=== PATIENT | male | born 1950 | race Caucasian/White ===

== ENCOUNTER → 2019-06-25 10:43 | Outpatient (CLI) | payer MEDICARE, OTHER, SELFPAY ==
--- NOTE | ~2019-06-25 | MR_ITS ---
EXAMINATION: MR shoulder RT wo con DATE: 06/25/2019 11:33 INDICATION: Impingement syndrome of right shoulder. TECHNIQUE: Magnetic resonance imaging (MRI) of the right shoulder was performed without intravenous c ontrast. Sequences included axial PD-weighted FS FSE, coronal oblique PD-weighted FS FSE and T2-weigh paola FS FSE, and sagittal oblique T2-weighted FS FSE and T1-weighted FSE. COMPARISON: Right shoulder MRI 06/20/2017 FINDINGS: Coracoacromial arch: The acromion undersurface is curved in morphology (type II). There are likely changes of acromioplast y and distal clavicle resection. There is moderate subacromial/subdeltoid bursitis. Rotator cuff: There is severe supraspinatus and infraspinatus tendinopathy. There is an interstitial tear involving supraspinatus and infraspinous tendons measuring 6 mm anterior to posterior by 7 mm proximal to dist al by 20% tendon thickness. Teres minor tendon is normal. There is moderate subscapularis tendinopath y. There is no asymmetric fatty atrophy of the rotator cuff muscle bellies. Biceps tendon and glenoid labrum: Biceps tendon is in bicipital groove. There is moderate intra-articular biceps tendinopathy. There is degeneration of the glenoid labrum without well-defined tear. Fluid: There is no glenohumeral joint effusion. Bones/cartilage: There is cartilage surface irregularity of glenoid. Humeral head cartilage is normal. IMPRESSION: 1. Severe rotator cuff tendinopathy with interstitial tear involving supraspinatus and infraspinatus tendons. 2. Mild glenoid chondrosis. 3. Moderate intra-articular biceps tendinopathy. 4. Moderate subacromial/subdeltoid bursitis. Reviewed, dictated and finalized at location A. ER TENDERS SUPERVISOR IMPRESSION: 1. Severe rotator cuff tendinopathy with interstitial tear involving supraspina tus and infraspinatus tendons. 2. Mild glenoid chondrosis. 3. Moderate intra-articular biceps tendinopathy. 4. Moderate subacromial/subdeltoid bursitis.
== END ==
DX: M75.41 Impingement syndrome of right shoulder (principal); M75.101 Unspecified rotator cuff tear or rupture of right shoulder, not specified as traumatic; M75.51 Bursitis of right shoulder
CPT/HCPCS: 73221

== ENCOUNTER → 2021-12-02 10:40 | Outpatient (CLI) | payer MEDICARE, OTHER, SELFPAY ==
--- NOTE | ~2021-12-02 | CT_ITS ---
EXAMINATION: CT abdomen pelvis wo/w con DATE: 12/02/2021 11:26 INDICATION: Renal cysts TECHNIQUE: Computed tomography (CT) of the abdomen was performed without intravenous contrast. CT of the abdomen and pelvis was then performed with a total of 100 mL Omnipaque 300 intravenous contrast u sing a double-bolus technique for simultaneous opacification of the renal parenchyma and renal collec ting system. The dose-length product (DLP) was 1992.82 mGy-cm. Automated exposure control and iterati ve reconstruction technique were employed. COMPARISON: None FINDINGS: Minimal dependent atelectasis is present in the lung bases. The heart size is normal. There is a 3 mm nodule of the right middle lobe. There is a small sliding hiatal hernia. The liver, spleen , pancreas, gallbladder, and adrenal glands are normal. There is a 5.2 x 3.6 cm cystic lesion of the right kidney which demonstrates internal septations, measuring up to 3 mm in thickness and thin calci fications and some septations. Simple cysts in the lower pole of the right kidney measure up to 3.6 c m. There is a 5 mm hemorrhagic cyst of the left kidney. No pathologically enlarged abdominal or pelvi c lymph nodes are identified. There is no free intraperitoneal gas or evidence of bowel obstruction. Colonic diverticulosis is present without evidence of diverticulitis. There are umbilical hernias con taining fat. Prostatomegaly is noted. There is questionable wall thickening of the urinary bladder. T here are a few nondistended loops of small bowel with formed stool, likely reflecting slow transit. IMPRESSION: 1. Bosniak IIF lesion of the right kidney. Follow-up CT or MRI without and with contrast in six month s is recommended. 2. Possible wall thickening of the urinary bladder which could reflect cystitis versus chronic outlet obstruction. Reviewed, dictated and finalized at location B. IMPRESSION: 1. Bosniak IIF lesion of the right kidney. Follow-up CT or MRI without and with contrast in six months is recommended. 2. Possible wall thickening of the urinary bladder which could reflect cystitis versus chronic outlet obstruction.
[2021-12-02 11:11] LABS: Estimated Glomerular Filt Rate > 60
== END ==
PROVIDERS: PCP Family Medicine; Visit Provider Internal Medicine Gastroenterology
DX: R63.4 Abnormal weight loss (principal); R10.9 Unspecified abdominal pain
CPT/HCPCS: 74178; Q9967

== ENCOUNTER → 2022-05-17 10:40 | Outpatient (CLI) | payer MEDICARE, OTHER, SELFPAY ==
--- NOTE | ~2022-05-17 | CT_ITS ---
CT of the Abdomen and Pelvis: Indication: Renal cyst Technique: 2.5 mm axial scans were obtained through the abdomen and pelvis prior to and following in travenous administration of 100 cc of Omnipaque 350. Dose reduction technique was used on this scan b y utilizing automated exposure control and iterative reconstruction technique. The dose-length produc t (DLP) was 1838.71 mGy-cm. COMPARISON: 12/02/2021 Findings: Scans through the lung bases are unremarkable. The liver, spleen, pancreas, gallbladder, and adrenal glands are within normal limits. Benign, nonenh ancing bilateral renal cysts are stable from prior exam. Largest right-sided cyst contains thin inter nal septation and focal calcification. No evidence of aortic aneurysm. No lymphadenopathy. No bowel obstruction or bowel wall thickening. Sigmoid diverticulosis noted. Images through the pelvis were performed. Urinary bladder unremarkable. Prostate gland is enlarged. P robable bilateral hydroceles are partially imaged. Impression: Benign renal cystic lesions, as detailed above, stable from prior exam. Enlarged prostate gland. Reviewed, dictated and finalized at location M. PROGRAM DIRECTOR Impression: Benign renal cystic lesions, as detailed above, stable from prior exam. Enlarged prostate gland.
[2022-05-17 11:01] LABS: Estimated Glomerular Filt Rate > 60
== END ==
PROVIDERS: PCP Family Medicine; Visit Provider Urology
DX: N28.1 Cyst of kidney, acquired (principal)
CPT/HCPCS: 74178; Q9967

== ENCOUNTER → 2023-04-16 10:20 | Outpatient (CLI) | payer MEDICARE, OTHER, SELFPAY ==
--- NOTE | ~2023-04-16 | CT_ITS ---
EXAMINATION: CT abdomen pelvis w con DATE: 04/16/2023 11:05 INDICATION: Abnormal weight loss TECHNIQUE: Computed tomography (CT) of the abdomen and pelvis was performed with 100 mL Omnipaque-350 intravenous contrast. Automated exposure control and iterative reconstruction technique were employe d. The dose-length product was 1135.62 mGy-cm. COMPARISON: 05/17/2022 FINDINGS: Calcified right middle lobe nodule, calcified right hilar lymph nodes and a few splenic calcification s, all consistent with old granulomatous disease. Heart size is normal. Small amount of scattered ath erosclerotic coronary artery calcification. No pericardial or pleural effusion. Liver, gallbladder, p ancreas and bilateral adrenal glands are normal. Bilateral simple appearing fluid attenuation renal c ysts, the largest on the right measuring 4.1 cm. Small amount of calcification along a couple thin in ternal septations associated with a larger 5.0 cm Bosniak 2 cystic right renal lesion. Also unchanged is a 1.3 cm coarse calcification and peripheral to the previously noted Bosniak 2 cystic right renal lesion There is extensive colonic diverticulosis without adjacent inflammatory stranding to suggest diverticulitis. Small bowel and appendix are normal. Bladder is normal. Prostatomegaly. Again seen ar e bilateral hydroceles, small to moderate on the right and large but incompletely visualized on the l eft. No free intraperitoneal gas or fluid. No pathologically enlarged abdominal or pelvic lymphadenop athy. There is calcified atherosclerosis of the aorta and many of the other arteries. 2 mm anterolist hesis L4 on L5 with severe associated bilateral facet osteoarthritis. Otherwise mild to moderate dege nerative skeletal changes in the pelvis and visualized spine. IMPRESSION: 1. Prostatomegaly. 2. Diverticulosis. 3. Bilateral hydroceles, small to moderate-sized on the right and large but incompletely visualized o n the left. 4. No significant change in a 5.0 cm Bosniak 2 right renal cyst along with a few additional bilateral simple appearing Bosniak 1 cysts. Reviewed, dictated and finalized at location A. COOK IMPRESSION: 1. Prostatomegaly. 2. Diverticulosis. 3. Bilateral hydroceles, small to moderate-sized on the right and large but inc ompletely visualized on the left. 4. No significant change in a 5.0 cm Bosniak 2 right renal cyst along with a fe w additional bilateral simple appearing Bosniak 1 cysts.
[2023-04-16 10:54] LABS: Estimated Glomerular Filt Rate > 60
== END ==
PROVIDERS: PCP Internal Medicine Gastroenterology; Visit Provider Internal Medicine Gastroenterology
DX: R63.4 Abnormal weight loss (principal); N40.0 Benign prostatic hyperplasia without lower urinary tract symptoms; K57.30 Diverticulosis of large intestine without perforation or abscess without bleeding; N43.3 Hydrocele, unspecified
CPT/HCPCS: 74177; Q9967

== ENCOUNTER 2024-09-29 14:05 | Emergency (ER) | payer MEDICARE, SELFPAY ==
--- NOTE | ~2024-09-29 | XR_ITS ---
EXAMINATION: XR hand RT min 3V DATE: 09/29/2024 14:39 INDICATION: Right hand pain TECHNIQUE: Posteroanterior, oblique and lateral views of the right hand were obtained. COMPARISON: None. FINDINGS: Bone alignment is normal. No fracture. Polyarticular osteoarthritis, moderate severity at the first c arpal metacarpal and second and fifth distal interphalangeal joints and mild at the distal radioulnar , triscaphe and many of the remaining metacarpophalangeal and interphalangeal joints. No erosions to suggest inflammatory arthritis. Soft tissues are unremarkable. IMPRESSION: 1. 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 No acute osseous abnorm ality. Reviewed, dictated and finalized at location A. IMPRESSION: 1. 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 N o acute osseous abnormality.
[2024-09-29 14:10] VITALS: BP 130/77; PULSE 80; RESP 16; TEMP 37; O2SAT 99
--- NOTE | 2024-09-29 16:54 | ED.UPPEXIN ---
HPI - Extremity Injury (Upper) General Chief Complaint: Extremity Injury, Upper Stated Complaint: Injured Hand Time Seen by Provider: 09/29/24 15:05 Source: patient and RN notes reviewed Mode of arrival: ambulatory Limitations: no limitations History of Present Illness HPI narrative: 73-year-old male presents Express Care complaining of right hand pain for 9 days. Denies no apparent injury to his right hand. Nine days ago patient was picking up sticks in the yard when he developed pain in his right hand. Patient reports most of his pain is behind the knuckle in his index finger. Patient says is also some pain to the dorsal surface of his hand. She denies any numbness or tingling. Patient denies any swelling or deformity. Patient has taken Tylenol for pain with mild relief. Patient says he avoids Motrin because he has IBS. Related Data Home Medications ?Medication ?Instructions ?Recorded ?Confirmed ?Last Taken ?Type cholecalciferol (vitamin D3) 50 50 mcg PO DAILY 11/19/19 09/29/24 Unknown History mcg (2,000 unit) capsule losartan 50 mg tablet 50 mg PO DAILY 11/19/19 09/29/24 Unknown History multivitamin,ce-rdrn-pqrkuzmj 1 tablet PO DAILY 11/19/19 09/29/24 Unknown History (Complete Multivitamin tablet) amlodipine 5 mg tablet 5 mg PO DAILY 12/09/20 09/29/24 Unknown History aspirin 81 mg tablet,delayed 81 mg PO DAILY 03/29/22 09/29/24 Unknown History release (Adult Aspirin Regimen) linaclotide 290 mcg capsule 290 mcg PO DAILY 03/28/23 09/29/24 Unknown History (Linzess) metoprolol tartrate 50 mg tablet 50 mg PO DAILY 03/28/23 09/29/24 Unknown History pantoprazole 40 mg tablet,delayed 40 mg PO DAILY 03/28/23 09/29/24 Unknown History release zolpidem 10 mg tablet 10 mg PO QHS 03/28/23 09/29/24 Unknown History azelastine 0.05 % eye drops 1 drp EACH EYE BID 04/02/24 09/29/24 Unknown History nortriptyline 10 mg capsule 10 mg PO QHS 04/02/24 09/29/24 Unknown History rosuvastatin 5 mg tablet 5 mg PO DAILY 09/29/24 09/29/24 Unknown History Allergies Allergy/AdvReac Type Severity Reaction Status Date / Time No Known Drug Allergies Allergy Unknown NONE Verified 09/29/24 14:12 Review of Systems Review of Systems: CONSTITUTIONAL: Denies fever, chills, or sweats. EYES: Denies visual changes, redness, or discharge. ENT: Denies rhinorrhea, congestion, sore throat, or otalgia. CARDIOVASCULAR: Denies chest pain, palpitations, or edema. RESPIRATORY: Denies cough or dyspnea. GASTROINTESTINAL: Denies abdominal pain, nausea, vomiting, or diarrhea. GENITOURINARY: Denies dysuria or hematuria. SKIN: Denies rash or itching. MUSCULOSKELETAL: Denies back pain, joint pain, or myalgia. Right hand pain. NEUROLOGIC: Denies headache, numbness, or weakness. PSYCHIATRIC: Denies anxiety or depression. All other systems reviewed are negative, except as documented in HPI. [facility] Past Medical History Medical History Anxiety Intermittent asthma NOLVIA (obstructive sleep apnea) Family History Family History Mother Family history of arthritis Father Family history of lung cancer, Onset Age: 68 Sibling Family history of sleep apnea Social History Social History Smoking packs per day: 1 Smoking cigarettes per day: 20.0 Years smoked: 44 Smoking pack-years: 44.00 Smoking status: Former smoker Second hand tobacco smoke exposure: Yes Smoking end date: 05/28/75 Alcohol intake: former Comments At the time of my signature, I reviewed and agree with the nursing past medical, surgical, social, and family history. There is no relevant family history pertinent to the patient complaint. Exam Narrative: GENERAL: This is a well-nourished, well-developed adult, in no apparent distress. They are non ill-appearing, nontoxic appearing. HEAD: normocephalic, atraumatic. EYES: Sclera clear/white. Conjunctiva normal. Vision is grossly intact. Extraocular movements intact EARS: External ears normal, Hearing grossly intact. NOSE: External nose normal THROAT: Mucous membranes moist, NECK: Normal range of motion CARDIOVASCULAR: Regular rate and rhythm RESPIRATORY: Respiratory rate normal, respiratory effort nonlabored, no respiratory distress SKIN: warm, Dry, intact with no suspicious lesions or rash, good texture and turgor. NEURO: awake, alert, and oriented to person, place and time. There were no obvious focal neurologic abnormalities. EXTREMITIES: Right hand: No obvious deformity, swelling, bruising, injury, redness. Patient is able to make a fist, stop sign, okay sign, thumbs up. Radial pulse 2 +and palpable. Normal range of motion of wrist and hand. Patient is able to pronate and supinate. Right index finger without swelling, deformity, bruising, injury. Patient able to move the index finger against resistance at the DIP, PIP and MCP. Bony tenderness to the MCP of the index finger. neurovascular status intact distal injury. Capillary refill less than 2 seconds, normal sensation. BACK: Nontender without deformity. No CVA tenderness. Course Course Emergency Course: Portions of this record may have been created with voice recognition software Level of Care: Express Care Visit Vital Signs Vital signs: Vital Signs Temperature 98.6 F 09/29/24 14:10 Pulse Rate 80 09/29/24 14:10 Respiratory Rate 16 09/29/24 14:10 Blood Pressure 130/77 09/29/24 14:10 Pulse Oximetry 99 09/29/24 14:10 Oxygen Delivery Room Air 09/29/24 14:10 Temperature 98.6 F 09/29/24 14:10 Pulse Rate 80 09/29/24 14:10 Respiratory Rate 16 09/29/24 14:10 Blood Pressure 130/77 09/29/24 14:10 Pulse Oximetry 99 09/29/24 14:10 Oxygen Delivery Room Air 09/29/24 14:10 Reviewed MDM - Extremity Injury (Upper) [facility] Narrative Medical decision making narrative: X-ray negative for any acute fracture or acute findings. Did show osteoarthritis the patient's right hand. Will prescribe diclofenac topical cream for pain. Discussed physical exam findings. Advised supportive measures and signs/symptoms to go to the ER. Pt is appropriate for outpt treatment and f/u. Differential Diagnosis Differential diagnosis: Likely other (Hand fracture, finger fracture, arthritis) Imaging Data Radiologist's impression: ITS Impressions Hand X-Ray 09/29/24 14:40 IMPRESSION: 1. 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 No acute osseous abnormality. Critical Care Time Critical Care Time Critical Care Time: No Discharge Plan Discharge Clinical Impression: Arthritis of hand, right Patient Disposition: Home Condition: Stable Instructions: Arthritis (ED) Additional Instructions: Your x-ray was negative for any fractures. X-ray did show arthritis of the right hand. You may wear a wrist splint or Daniel wrap for comfort. Apply ice 15-20 minute intervals several times a day You may use Tylenol as needed for pain. Use the diclofenac gel to the affected area. Follow up with your primary care provider as needed in 1-2 weeks Please follow-up with the hand specialist orthopedist if pain persists. Patient Language: Cuban Prescriptions: New diclofenac sodium 1 % gel 4 g topical QID 5 Days Qty: 100 0RF Rx Instructions: Apply to the affected area up to 4 times daily. No Action rosuvastatin 5 mg tablet 5 mg PO DAILY losartan 50 mg tablet 50 mg PO DAILY cholecalciferol (vitamin D3) 50 mcg (2,000 unit) capsule 50 mcg PO DAILY Complete Multivitamin Tablet 1 tablet PO DAILY amlodipine 5 mg tablet 5 mg PO DAILY aspirin [Adult Aspirin Regimen] 81 mg tablet,delayed release (DR/EC) 81 mg PO DAILY zolpidem 10 mg tablet 10 mg PO QHS pantoprazole 40 mg tablet,delayed release (DR/EC) 40 mg PO DAILY metoprolol tartrate 50 mg tablet 50 mg PO DAILY Linzess 290 mcg capsule 290 mcg PO DAILY azelastine 0.05 % drops 1 drp EACH EYE BID nortriptyline 10 mg capsule 10 mg PO QHS Follow-up/Referrals: Baljit Fonseca MD [Physician] - Kristian Short MD [Physician] - PHYSICIAN,SWIMMER [Primary Care Provider] - Time of Disposition: 15:12
== END 2024-09-29 15:16 | disposition home or self-care (01) ==
DX: M19.041 Primary osteoarthritis, right hand (principal); Z87.891 Personal history of nicotine dependence; J45.909 Unspecified asthma, uncomplicated; Z79.82 Long term (current) use of aspirin
CPT/HCPCS: 73130; 99213; G0463

== ENCOUNTER → 2024-10-21 16:05 | Outpatient (REF) | payer MEDICARE, SELFPAY ==
--- NOTE | 2024-10-21 16:05 | S_PTH ---
PATIENT: Kevin Metzger Jr. LOC: [facility] U#:[id number] AGE/SX: 74/M ROOM: RE10/21/[address]: Gokul Hamilton MD : [id number] BED: DIS: SPEC #: [id number] RECD: 10/23/24 07:16 STATUS: ADEEL MENDOZA #: [id number] CAM: 10/21/24 16:[address]: Gokul Hamilton DEPT: [facility] Surgical RECD BY: Dena Villavicencio ENTERED: 10/23/24 07:16 SP TYPE: Surgical OTHR DR: SURGERY ASSISTANT PHYSICIAN Tissues: A - Skin Bx Procedures: Hematoxylin and Eosin Stain Gross and Microscopic Level 4
--- OUTSIDE RECORDS SUMMARY | 2024-10-21 16:22 | XMS_ITS | Encounter Summary ---
Author Organization [facility] Facility Care Team Providers Care Camp Manager Name Role Phone Damian Sparrow DO Primary Care Provider + Gerhard Hampton MD Unavailable [phone] Encounter Details Date Type Department Care Team (Latest Contact Info) Description 10/03/2016 Orders Only [facility] CLINCONV ProviderStew MD [address] [place] [id number] Social History Tobacco Use Types Packs/Day Years Used Date Smoking Tobacco: Never Assessed Sex and Gender Information Value Date Recorded Sex Assigned at Not on file Legal Sex Male 8:24 AM CDT Gender Identity Male 01/12/2020 10:37 AM CDT Sexual Orientation Not on file documented as of this encounter Plan of Treatment Not on file documented as of this encounter Procedures Procedure Name Priority Date/Time Associated Diagnosis Comments COLONOSCOPY - SCAN 10/03/2016 12 :00 AM CDT documented in this encounter Results * COLONOSCOPY - SCAN (10/03/2016 12:00 AM CDT) Narrative 10/03/2016 12:00 AM CDT Ordered by an unspecified provider. Historical Provider Final Res ult documented in this encounter Visit Diagnoses Not on filedocumented in this encounter Care Teams Camp Manager Relationship Specialty Start Date End Date Damian Sparrow DO PCP - General 08/12/18 Gerhard Hampton MD [address] [place] [address] Grommet Machine Operator Cardiology 05/09/19 documented as of this encounter
--- OUTSIDE RECORDS SUMMARY | 2024-10-21 16:22 | XMS_ITS | Clinical Summary ---
Author Organization [facility] Address [address] [place] [address] Care Team Providers Care Commercial Intelligence Manager Name Role Phone Unavailable Primary Care Provider Unavailabl e Source Comments [facility],non-owned Affiliates and Associated Physician Practices is amultiple site organization consisting of ambulatory clinics and hospital sitesin [place], [place] and [place]. This disclosure is being madepursuant to the Care Everywhere program and may not contain all information available regarding this patient. Last updated 18.[facility] [employer] Social History Tobacco Use Types Packs/Day Years Used Date Smoking Tobacco: Never Assessed Sex and Gender Information Value Date Recorded Sex Assigned at Not on file Legal Sex Male 11:36 AM PIN INSERTER Gender Identity Not on file Sexual Orientation Not on file Plan of Treatment Health Maintenance Due Date Last Done Comments HEPATITIS C SCREENING 10/01/1966 DTAP/TDAP/TD VACCINES (1 - Tdap) 10/06/1967 PNEUMOCOCCAL VACCINE 50+ (1 of 1 - PCV) 1998 ZOSTER VACCINE (1 of 2) 1998 Respiratory Syncytial Virus (RSV) Vaccine Pt: or over 60 yrs (1 - 1-dose 75+ series) 10/06/2023 COVID-19 VACCINE ( - 2023-2 5 season) 2024 DEPRESSION SCREENING 05/28/2024 MEDICARE AWV CALENDAR YEAR 2024 INFLUENZA VACCINE (Season Ended) 2025 HEPATITIS B VACCINE Aged Out No longe r eligible based on patient's age to complete this topic HIB VACCINE Aged Out No longer eligi ble based on patient's age to complete this topic HPV VACCINE Aged Out No longer eligi ble based on patient's age to complete this topic MENINGOCOCCAL (Group B) VACC INE SHARED DECISION-MAKING Aged Out No longer eligibl e based on patient's age to complete this topic MENINGOCOCCAL GROUPS A/C/Y/W VACCINE Aged Out No longer eligible b ased on patient's age to complete this topic Insurance MEDICARE [facility] MANAGED MEDICARE ADV MEDICARE [facility]
--- OUTSIDE RECORDS SUMMARY | 2024-10-21 16:22 | XMS_ITS | Encounter Summary ---
Author Organization [facility] Facility Care Team Providers Care Tube Bender Name Role Phone Damian Sparrow DO Primary Care Provider + Gerhard Hampton MD Unavailable [phone] Encounter Details Date Type Department Care Team (Latest Contact Info) Description 03/12/2016 Orders Only [facility] CLINCONV ProviderStew MD [address] [place] [id number] Social History Tobacco Use Types Packs/Day [...] Procedure Name Priority Date/Time Associated Diagnosis Comments CARDIOLOGY REPORT 03/14/2016 12: 00 AM CDT documented in this encounter Results * CARDIOLOGY REPORT (03/14/2016 12:00 AM CDT) Anatomical Region Laterality Modality Other Narrative 03/14/2016 12:00 AM CDT Ordered by an unspecified provider. Historical Provider [facility] Final Result documented in this encounter Visit Diagnoses Not on filedocumented in this encounter Care Teams Tube Bender Relationship Specialty Start Date End Date [place], Damian Solomon, DO PCP - General 08/12/18 Gerhard Hampton MD [address] [place] [address] Program Coordinator Executive Education Cardiology 05/09/19 documented as of this encounter
--- OUTSIDE RECORDS SUMMARY | 2024-10-21 16:22 | XMS_ITS | Encounter Summary ---
Author Organization [facility] Facility Care Team Providers Care Sports Recruiter Name Role Phone Damian Sparrow DO Primary Care Provider + Gerhard Hampton MD Unavailable [phone] Encounter Details Date Type Department Care Team (Latest Contact Info) Description 12/31/2017 Orders Only [facility] CLINCONV Provider, MD Stew [address] [place] [id number] Social History Tobacco Use Types Packs/Day [...] Procedure Name Priority Date/Time Associated Diagnosis Comments SCAN - LABS 01/04/2018 12:00 AM CDT documented in this encounter Results * SCAN - LABS (01/04/2018 12:00 AM CDT) Narrative 01/04/2018 12:00 AM CDT Ordered by an unspecified provider. Historical Provider Final Res ult documented in this encounter Visit Diagnoses Not on filedocumented in this encounter Care Teams Sports Recruiter Relationship Specialty Start Date End Date Damian Sparrow DO PCP - General 08/12/18 Gerhard Hampton MD [address] [address] Generating Station Mechanic Cardiology 05/09/19 documented as of this encounter
--- OUTSIDE RECORDS SUMMARY | 2024-10-21 16:22 | XMS_ITS | Clinical Summary ---
Author Organization [facility] Office [place] Address [address] [place] [address] Care Team Providers Care Personnel Worker Name Role Phone Damian Sparrow DO Primary Care Provider + Gerhard Hampton MD Unavailable [phone] Allergies No known active allergies Medications cholecalcifero l (VITAMIN D-3) 2000 unit tablet Take 1 tablet (2,000 Units total) by mouth daily Active multivitamin tablet Take by mouth daily Active aspirin 81 mg enteric coated tablet Take 1 tablet (81 mg total) by mouth daily Active tobramycin-dex AMETHasone (TOBRADEX) ophthalmic solution 1 drop as needed Active albuterol HFA (Proventil HFA) 90 mcg/actuation inhaler Inhale 2 puffs every 4 (four) hours as needed for wheezing or shortness of breath 6.7 g 5 1 Active fluticasone propionate (FLOVENT HFA) 110 mcg/actuation inhaler Inhale 1 puff daily Rinse mouth with water after use. Do not swallow. Please give the rx with a spacer 1 each 2 Active azelastine (OPTIVAR) 0.05 % ophthalmic solution 1 drop 2 (two) times a day [address] (PROTONIX) 40 mg EC tablet Take 1 tablet (40 mg total) by mouth daily Active Linzess 290 mcg capsule Take 1 capsule (290 mcg total) by mouth daily 3 Active nortriptyline (PAMELOR) 10 mg capsule Take 1 capsule (10 mg total) by mouth nightly Active amLODIPine (NORVASC) 5 mg tablet Take 1 tablet (5 mg total) by mouth daily 90 tablet 4 Active losartan (COZAAR) 50 mg tablet Take 1 tablet (50 mg total) by mouth daily 90 tablet 4 Active metoprolol tartrate (LOPRESSOR) 50 mg immediate release tablet Take 1 tablet (50 mg total) by mouth daily 90 tablet 4 Active zolpidem (AMBIEN) 10 mg tablet Take 0.5 tablets (5 mg total) by mouth nightly as needed for sleep 30 tablet 4 Active ezetimibe (ZETIA) 10 mg tablet TAKE 1 TABLET BY MOUTH DAILY 90 tablet 4 Active Additional Information Patient taking differently: 10 mg oral Daily, Indications: hyperlipidemia, Informant: Self, Reported on 07/25/2023 dutasteride (AVODART) 0.5 mg capsule Take 1 capsule (0.5 mg total) by mouth daily 3 Active oxyCODONE (ROXICODONE) 5 mg immediate release tabletIndicati ons:Pain Take 1 tablet (5 mg total) by mouth every 4 (four) hours as needed for pain 30 tablet 4 Active lactulose 0.67 gram/mL solution TAKE 15 ML BY MOUTH EVERY DAY FOR 90 DAYS 3 08/04/19 23 Discontin ued(Dupli sachin order) Active Problems Problem Noted Date Diagnosed Date Closed displaced fracture of fifth metacarpal bone of right hand 07/24/2023 Dislocation of carpometacarpal joint of right young nd 07/24/2023 Generalized abdominal pain 04/10/2023 Assessment & Plan (04/10/2023 4:21 PM HELICOPTER PILOT INSTRUCTOR): Seeing Dr. Sadie Davila discussion with the pt Right bundle branch block 04/02/2023 Primary central sleep apnea 10/02/2022 Assessment & Plan (10/02/2022 2:17 PM CDT): Patient has longstanding history of sleep apnea using BiPAP and got use for last 15 years doing well encouraged to use it regularly Slow transit constipation 07/18/2022 Assessment & Plan (08/03/2022 10:43 AM HELICOPTER PILOT INSTRUCTOR): Chronic constipation, worsening since September of 2021. Patient has been following with Dr. Hwang and is here for a 2nd opinion. He is tried and failed Metamucil and MiraLax. He was started on Linzess 290 mcg p.o. daily, however switch to Linzess 72 mcg p.o. daily. Due to financial reasons he stopped this medication was put on lactulose which seems to work for most days. He was also tried on empiric Flagyl with no improvement. Colonoscopy by Dr. Noel May 2021 with diverticulosis and hemorrhoids otherwise unremarkable. -recommend increasing lactulose to 30 mL daily for 6 weeks, then decrease to 15 mL daily -okay to use Linzess 72 mcg p.o. daily as needed (patient states he has some leftover medication) -high-fiber diet Assessment & Plan (07/18/2022 2:09 PM HELICOPTER PILOT INSTRUCTOR): Refer to Dr. Valderrama Has also used Linzess Encounter for Medicare annual wellness exam 02/27 Assessment & Plan (03/27/2022 10:50 AM CDT): Chart reviewed VALERIE (generalized anxiety disorder) 03/27/2022 Assessment & Plan (04/10/2023 4:20 PM HELICOPTER PILOT INSTRUCTOR): Patient is well controlled. Continue current treatment. Assessment & Plan (03/27/2022 10:51 AM CDT): Patient is well controlled. Continue current treatment. Mild episode of recurrent major depressive disor maria dolores 03/27/2022 Assessment & Plan (04/10/2023 4:07 PM HELICOPTER PILOT INSTRUCTOR): Patient is well controlled. Continue current treatment. Assessment & Plan (07/18/2022 2:08 PM HELICOPTER PILOT INSTRUCTOR): Patient is well controlled. Continue current treatment. Assessment & Plan (03/27/2022 10:51 AM CDT): No new orders Rectal pain 03/27/2022 Assessment & Plan (03/27/2022 10:58 AM CDT): Had a colonoscopy Worsening issue Add align Hiatal hernia 08/09/2020 Assessment & Plan (08/09/2020 2:05 PM CDT): Refer to Dr. 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 Magaña who checks PSA Diverticulosis 01/13/2019 Assessment & Plan (01/13/2019 2:29 PM CDT): Stable Elevated blood sugar 01/13/2019 Assessment & Plan (03/27/2022 11:06 AM CDT): Check a a1c Assessment & Plan (11/10/2020 2:03 PM CDT): Check a a1c Patient is well controlled. Continue current treatment. Assessment & Plan (07/25/2019 12:48 PM HELICOPTER PILOT INSTRUCTOR): a1c GERD (gastroesophageal reflux disease) 9 Assessment & Plan (04/10/2023 4:07 PM HELICOPTER PILOT INSTRUCTOR): Seeing Dr. Noel Assessment & Plan (08/03/2022 10:36 AM HELICOPTER PILOT INSTRUCTOR): Chronic GERD, well controlled with PPI daily. EGD with antral gastritis, biopsies negative for H pylori. -continue PPI daily -RECOMMENDATIONS given include:. anti-reflux maneuvers, Avoid acidic foods like oranges and tomatoes., Avoid calcium supplements, Avoid chocolate and peppermint., avoid cruciferous vegetables: onions, cabbage, cauliflower, broccoli, [place] sprouts, Avoid fatty food., avoid sodas and drinks that contain caffeine, avoidance of spicy foods, avoid eating 3-4 hours before bed, avoid tight-fitting clothing, and discontinuation of NSAIDs and aspirin Assessment & Plan (04/19/2020 2:14 PM HELICOPTER PILOT INSTRUCTOR): Patient is well controlled. Continue current treatment. Assessment & Plan (01/19/2020 1:08 PM CDT): Patient is well controlled. Continue current treatment. Assessment & Plan (07/25/2019 12:42 PM HELICOPTER PILOT INSTRUCTOR): Needs EGD See Dr. Noel Assessment & Plan (01/13/2019 2:36 PM CDT): Continue Dexilant Wishes to see a new gastroenteritis Sleep apnea 11/04/2018 Assessment & Plan (02/09/2021 1:36 PM CDT): Saw sleep Dr Is located in [place] Discussed ambien Was told she was not happy with this Assessment & Plan (05/17/2020 2:35 PM HELICOPTER PILOT INSTRUCTOR): stable Assessment & Plan (01/13/2019 2:29 PM CDT): CPAP Patient is well controlled. Continue current treatment. Primary osteoarthritis of both knees 04/04/2018 HLD (hyperlipidemia) 12/26/2017 Assessment & Plan (10/02/2022 2:16 PM CDT): Patient is abnormal lipids taking Zetia which she is tolerating well no side effects advised to continue same and have low-cholesterol diet Assessment & Plan (03/27/2022 10:54 AM CDT): Patient is well controlled. Continue current treatment. Assessment & Plan (07/25/2019 12:42 PM HELICOPTER PILOT INSTRUCTOR): Patient is well controlled. Continue current treatment. Assessment & Plan (01/13/2019 2:28 PM CDT): Patient is well controlled. Continue current treatment. Obesity (BMI 30-39.9) 07/11/2017 Assessment & Plan (01/13/2019 2:28 PM CDT): Healthy diet Rotator cuff tendonitis, right 06/19/2017 Assessment & Plan (11/10/2020 2:06 PM CDT): Chronic issues Sees Dr. Jean Baptiste Told a slight tear in right rotator cuff Mri kenalog may 2019 Add tramadol HTN (hypertension) 03/20/2016 Assessment & Plan (04/10/2023 4:07 PM HELICOPTER PILOT INSTRUCTOR): Patient is well controlled. Continue current treatment. Assessment & Plan (10/02/2022 2:15 PM CDT): Longstanding history hypertension which is under good control with amlodipine patient advised to continue same and salt restricted diet patient also taking losartan which she is tolerating no side effects. Assessment & Plan (07/18/2022 2:07 PM HELICOPTER PILOT INSTRUCTOR): Patient is well controlled. Continue current treatment. Continue amlodipine Assessment & Plan (02/09/2021 1:35 PM CDT): Patient is well controlled. Continue current treatment. Assessment & Plan (08/09/2020 2:04 PM CDT): Patient is well controlled. Continue current treatment. Assessment & Plan (06/28/2020 1:09 PM HELICOPTER PILOT INSTRUCTOR): Patient is well controlled. Continue current treatment. Assessment & Plan (05/17/2020 2:34 PM HELICOPTER PILOT INSTRUCTOR): Patient is well controlled. Continue current treatment. Assessment & Plan (04/19/2020 2:13 PM HELICOPTER PILOT INSTRUCTOR): Add amlodipine 5 Assessment & Plan (01/19/2020 1:08 PM CDT): Patient is well controlled. Continue current treatment. Assessment & Plan (07/25/2019 12:42 PM HELICOPTER PILOT INSTRUCTOR): Patient is well controlled. Continue current treatment. Assessment & Plan (01/13/2019 2:28 PM CDT): Patient is well controlled. Continue current treatment. Vitamin D deficiency 03/20/2016 Primary osteoarthritis of left knee 12/23/2015 Primary osteoarthritis of right knee 12/23/2015 Gout 12/01/2015 Resolved Problems Problem Noted Date Diagnosed Date Resolved Date Palpitations in pediatric patient 06/02/2021 03/27/2022 Pre-op exam 05/18/2021 03/27/2022 Assessment & Plan (05/18/2021 1:32 PM HELICOPTER PILOT INSTRUCTOR): Lab and cxr Chest wall pain 05/18/2021 03/27/2022 Assessment & Plan (05/18/2021 1:40 PM HELICOPTER PILOT INSTRUCTOR): He has a tender chest wall mid sternum to palpation. No masses are palpated there is no breast tenderness. No breast masses. Heart is regular lungs are clear. I am going to check a chest x-ray EKG CBC Chem 7 PT PTT and a sed rate He does have some itching around the nipple I am going to put him on Lotrisone cream and he will give me an update in 1 week Anxiety 06/28/2020 03/27/2022 Assessment & Plan (02/09/2021 1:38 PM CDT): Add duloxetine Assessment & Plan (11/10/2020 2:02 PM CDT): Add xanax Assessment & Plan (08/09/2020 2:09 PM CDT): Woke up nervous with the buspar Take the buspar at 2000 hrs Assessment & Plan (06/28/2020 1:09 PM HELICOPTER PILOT INSTRUCTOR): Add buspar SOB (shortness of breath) 04/19/2020 Assessment & Plan (04/19/2020 2:15 PM HELICOPTER PILOT INSTRUCTOR): cxr Lab Long standing Renal calcification 07/24/2018 03/27/20 22 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 Jean Baptiste Impingement syndrome of shoulder region 06/19/2017 03/27/2022 Elevated PSA 07/07/2016 04/10/2023 Assessment & Plan (07/18/2022 2:08 PM HELICOPTER PILOT INSTRUCTOR): Sees Dr. Magaña Assessment & Plan (03/27/2022 10:51 AM CDT): Sees Dr. Magaña urologist Assessment & Plan (08/09/2020 2:04 PM CDT): Will see urologist in October 2020 Assessment & Plan (06/28/2020 1:09 PM HELICOPTER PILOT INSTRUCTOR): Sees urology Assessment & Plan (01/19/2020 1:11 PM CDT): Sees Dr. Archana psa 1.5 Doing well Depression 12/23/2015 03/27/2022 Assessment & Plan (01/19/2020 1:08 PM CDT): Patient is well controlled. Continue current treatment. Knee pain 12/22/2015 03/27/2022 Heart murmur 12/01/2015 03/27/2022 Overview (06/18/2019): Description: as child Chronic sinus complaints 12/01/2015 Headache 12/01/2015 03/27/2022 Wears dentures 12/01/2015 05/17/2020 Wears glasses 12/01/2015 05/17/2020 Immunizations Immunization Administration Dates Next Due Influenza, Quad, Adjuvantate d, Intramuscular 03/24/2022,04/26/2021,03/04/2020 Influenza, Trivalent, High D ose, Split, Preservative Free, Intramuscular 04/04/2018,03/05/2017,04/12/2016,04/06,04/07/2008,1948 Influenza, Trivalent, IM (MDV) 04/09/2014,2012 Influenza, Unspecified 03/15/2023,2021,04/04/2018,03/05,04/12/2016,04/06/2015 Moderna SARS-CoV-2 Monovalen t Vaccination (12+ YRS) 08/23/2020,07/26/2020 Pneumococcal Conjugate PCV 13 06/29/2016 Pneumococcal Polysaccharide PPV23 04/19/2020 ZOSTER LIVE 09/23/2013 Surgical History Surgery Date Site/Laterality Comments SHOULDER SURGERY Bilateral right shoulder twice, Dec 20072021, left shoulder x 1 2006 KNEE SURGERY Bilateral knee scopes Left 2011, right 2012 COLONOSCOPY -2016, 04/2015 CARDIAC SURGERY 05/28/2011 - 05/27/2012 cardiac catherization - 10 % blockage PROSTATE SURGERY CLOSED REDUCTION HAND FRACTURE 07/31/2023 Right closed reduction internal fixation rt sm MC and rt 5th [facility] joint perutaneous pinning Medical History Medical History Date Comments HTN (hypertension) HLD (hyperlipidemia) Obesity Elevated PSA Vitamin D deficiency Sleep difficulties bipap HL (hearing loss) GERD (gastroesophageal reflux disease) Irritable bowel syndrome Family History Medical History Relation Name Comments No Known Problems Brother 4 Diabetes Father Lung cancer Father Hypertension Mother Kidney disease Sister 1 No Known Problems Sister 2 2 No Known Problems Son 2 Relation Name Status Comments Brother 4 Alive Father Mother Sister 1 Alive Sister 2 2 Son 2 Alive Social History Tobacco Use Types Packs/Day Years Used Date Smoking Tobacco: Never Smokeless Tobacco: Never Tobacco Cessation:Counseling Given: Not Answered Alcohol Use Standard Drinks/Week Comments Yes 0 (1 standard drink = 0.6 oz pur e alcohol) Beer daily AUDIT-C Answer Date Recorded Q1: How often do you have a drink containing alcohol? 4 or more times a week 07/31/2023 Q2: How many drinks containi ng alcohol do you have on a typical day when you are drinking? 1 or 2 Q3: How often do you have si x or more drinks on one occasion? Never 07/31/2023 PHQ-2 Answer Date Recorded PHQ-2 Total Score (If total score is 3 or more points, staff should administer the PHQ-9) 0 03/27/2022 Personal Safety Answer Date Recorded Have you ever been in or are you currently in a harmful physical or emotional relationship or is someone making you feel afraid or unsafe? Denies 07/31/2023 Sex and Gender Information Value Date Recorded Sex Assigned at Not on file Legal Sex Male 8:24 AM CDT Gender Identity Male 01/12/2020 10:37 AM CDT Sexual Orientation Not on file Obstetrics History Last Filed Vital Signs Vital Sign Reading Time Taken Comments Blood Pressure 116/77 07/31/2023 3:06 PM HELICOPTER PILOT INSTRUCTOR Pulse 57 07/31/2023 3:06 PM HELICOPTER PILOT INSTRUCTOR Temperature 36.6 C (97.8 F) 07/31/2023 1:59 PM HELICOPTER PILOT INSTRUCTOR Respiratory Rate 16 07/31/2023 3:06 PM HELICOPTER PILOT INSTRUCTOR Oxygen Saturation 99% 07/31/2023 3:06 PM HELICOPTER PILOT INSTRUCTOR Inhaled Oxygen Concentration - - Weight 113.6 kg (250 lb 6.4 oz) 07/26/2023 2:05 PM HELICOPTER PILOT INSTRUCTOR Height 190.5 cm (6' 3) 07/26/2023 2:05 PM HELICOPTER PILOT INSTRUCTOR Body Mass Index 31.3 07/26/2023 2:05 PM HELICOPTER PILOT INSTRUCTOR Plan of Treatment Health Maintenance Due Date Last Done Comments DTaP/Tdap/Td Vaccine (1 - Tdap) [birth year]06/1961 Hepatitis B Screening 1966 Zoster Vaccine (2 of 3) 11/18/2013 09/23/2013 Depression Screening 03/27/2023 03/27/2022, 05/18/2021, 04/19/2020, Additional history exists Well Visit 65+ 03/27/2023 03/27/2022, 02/27, 04/19/2020 Covid-19 Vaccine (5 - 2023-2 5 season) 2024 03/15/2023, 03/24/2022, 08/23/2020, Additional history exists Fall Risk Assessment 07/30/2024 07/31/2023, 03/27/2022, 04/19/2020, Additional history exists Influenza Vaccine (Season Ended) 2025 03/15/2023, 03/24/2022, 02/25/2022, Additional history exists Pneumococcal vaccine 65+ Completed 04/19/2020, 06/2016 Hepatitis C Screening Completed 04/29/2020 Colon Cancer Screening-CT Colonography Discontinued 12/18/2022, 12/18/2022, 12/10/2021, Additional history exists Colon Cancer Screening-Colonoscopy Discontinued 12/18/2022, 12/18/2022, 12/10/2021, Additional history exists Colon Cancer Screening-DNA Stool Discontinued 12/18/2022, 12/18/2022, 12/10/2021, Additional history exists Colon Cancer Screening-FIT Discontinued 12/18, 12/18/2022, 12/10/2021, Additional history exists Colon Cancer Screening-FOBT Discontinued 11/26, 12/18/2022, 12/10/2021, Additional history exists Colon Cancer Screening-Sigmoidoscopy Discontinued 12/18/2022, 12/18/2022, 12/10/2021, Additional history exists Colorectal Cancer Screening Discontinued Medical Devices Implanted Type Area Flatwork Tier Device Identifier Shelf Expiration Date Model / Serial / Lot Allovue C-Wire Jacobo .062in 5in [place] Tip Smooth Bone Wire Fixation [id number] - [id number] Implanted:Qty: 1 on 07/31/2023 by Cari Paulino MD at [facility] [employer] [place] [id number] / / Procedures Procedure Name Priority Date/Time Associated Diagnosis Comments COLONOSCOPY Routine 12/18/2022 HEPATITIS C ANTIBODY Routine 04/29/2020 10:21 AM HELICOPTER PILOT INSTRUCTOR Essential hypertension Medicare annual wellness visit, subsequent Gastroesophageal reflux disease, unspecified whether esophagitis present SOB (shortness of breath) from Last 3 Months or Most Recently Relevant to Health Maintenance Results * Colonoscopy (12/18/2022) Anatomical Region Laterality Modality Other [facility] Provider MD ENDOSCOPY PROCEDURES Maya l Result * Hepatitis C antibody (04/29/2020 10:21 AM HELICOPTER PILOT INSTRUCTOR) Hep C Ab <0.1 0.0 - 0.9 s/co ratio [facility] - 01 Comment: Negative: < 0.8 Indeterminate: 0.8 - 0.9 Positive: > 0.9 The CDC recommends that a positive HCV antibody result be followed up with a HCV Nucleic Acid Amplification test (837581). Blood specimen (specimen) 04/29/2020 10:21 AM HELICOPTER PILOT INSTRUCTOR 04/29/2020 Narrative [facility] - 04/30/2020 7:36 AM HELICOPTER PILOT INSTRUCTOR Performed at: 01 - [facility] [id number] [employer] Software Development Engineer: Jens Cespedes PhD, Phone: [phone] Damian Sparrow DO LAB MICROBIOLOGY - GENER AL ORDERABLES Final Result [facility] - 01 from Last 3 Months or Most Recently Relevant to Health Maintenance Insurance MEDICARE [facility] MEDICARE ADVANTAGE [facility] MEDICARE ADVANTAGE Care Teams Personnel Worker Relationship Specialty Start Date End Date Damian Sparrow DO PCP - General 08/12/18 Gerhard Hampton MD [address] [address] Weight Yardage Checker Cardiology 05/09/19
--- OUTSIDE RECORDS SUMMARY | 2024-10-21 16:22 | XMS_ITS | Encounter Summary ---
Author Organization [facility] Address [address] [facility] [place] [address] Care Team Providers Care Consulting Application Engineer Name Role Phone Unavailable Primary Care Provider Unavailabl e Encounter Details Date Type Department Care Team (Late st Contact Info) Description 06/18/2023 Lab Requisition [facility] - DermPath Lab [address] [place] [address] Rik Brown MD [address] [place] [address] Social History Tobacco Use Types Packs/Day Years Used Date Smoking Tobacco: Never Assessed Sex and Gender Information Value Date Recorded Sex Assigned at Not on file Legal Sex Male 11:36 AM TRAY ROOM WORKER Gender Identity Not on file Sexual Orientation Not on file documented as of this encounter Plan of Treatment Not on file documented as of this encounter Procedures Procedure Name Priority Date/Time Associated Diagnosis Comments DERMATOPATHOLOGY Routine 06/13/2023 12:0 0 AM TRAY ROOM WORKER documented in this encounter Results * DERMATOPATHOLOGY (06/13/2023 12:00 AM TRAY ROOM WORKER) Case Report Dermatopathology Report Case: [id number] Authorizing Provider: Rik Brown MD Collected: 06/13/2023 12:00 AM Ordering Location: [facility] Derm[facility] Lab Received: 06/18/2023 11:00 AM Pathologist: Pina Lovell MD Specimens: A) - Skin, superior sternum B) - Skin, left side abdomen 4:33 PM TRAY ROOM WORKER DERMATOPATHOLOGY LABORATORY Final Diagnosis Specimen A. SKIN, superior sternum: BASAL CELL CARCINOMA, SUPERFICIAL MULTIFOCAL (C44.519) GRANULOMATOUS DERMATITIS CONSISTENT WITH A RUPTURED CYST OR HAIR FOLLICLE (L72.0) Specimen B. SKIN, left side abdomen: BASAL CELL CARCINOMA, SUPERFICIAL MULTIFOCAL (C44.519) 4:33 PM [facility] DERMATOPATHOLOGY LABORATORY at [address] TRAY ROOM WORKER Clinical History A: r/o Glynn, BCC, SCC B: r/o SCC, Glynn 4:33 PM [facility] DERMATOPATHOLOGY LABORATORY Gross Description Specimen A: Received is one formalin filled container labeled with the patient's name and designated superior sternum. The specimen consists of a shave biopsy measuring 8x7x1 mm. Jar 0. Specimen B: Received is one formalin filled container labeled with the patient's name and designated left side abdomen. The specimen consists of a shave biopsy measuring 10x8x1 mm. Jar 0. 4:33 PM [facility] DERMATOPATHOLOGY LABORATORY Microscopic Description Specimen A. SKIN, superior sternum: Attached to the undersurface of the epidermis, there are small aggregates of basaloid cells with a high nuclear to cytoplasmic ratio and peripheral palisading. Neutrophils, histiocytes, and multinucleated giant cells are present within the dermis. Specimen B. SKIN, left side abdomen: Attached to the undersurface of the epidermis, there are small aggregates of basaloid cells with a high nuclear to cytoplasmic ratio and peripheral palisading. 4:33 PM [facility] DERMATOPATHOLOGY LABORATORY Disclaimer An external and internal positive and negative controls are appropriate for the histochemical, immunohistochemical and immunofluorescence stain(s) in this case (if any), except where stated explicitly. The performance characteristics of the stain(s) cited in this report were developed and its performance characteristic determined by the Dermatopathology Laboratory at [facility], directed by Dr. Jozef Haque. These tests need not be, and therefore are not, approved by the [place] Food and Drug Administration. The tests are used for clinical purposes. Billing Codes Specimen Charges Stain Charges 59963 39444 1 1 4:33 PM [facility] DERMATOPATHOLOGY LABORATORY Embedded Images 4:33 PM [facility] DERMATOPATHOLOGY LABORATORY Pathology/Cytology TISSUE SPECIMEN FROM SKIN / Unknown 06/13/2023 06/18/2023 11:00 AM TRAY ROOM WORKER Miscellaneous samples (specimen) TISSUE SPECIMEN FROM SKIN / Unknown 06/13/2023 06/18/2023 11:00 AM TRAY ROOM WORKER Rik Brown MD LAB - PATHOLOGY/CYTOLOGY ORD ERABLES Final Result DERMATOPATHOLOGY LABORATORY [facility] - Department of Dermatology [facility] [address] [place] [address], [address] [phone] documented in this encounter Visit Diagnoses Not on filedocumented in this encounter
--- OUTSIDE RECORDS SUMMARY | 2024-10-21 16:22 | XMS_ITS | Encounter Summary ---
Author Organization [facility] Facility Care Team Providers Care Lithograph Press Feeder Name Role Phone Damian Sparrow DO Primary Care Provider + Gerhard Hampton MD Unavailable [phone] Encounter Details Date Type Department Care Team (Latest Contact Info) Description 07/06/2016 Orders Only [facility] CLINCONV ProviderStew MD [address] [place] [address] Social History Tobacco Use Types Packs/Day [...] Date/Time Associated Diagnosis Comments SCAN - LABS 07/07/2016 12:00 AM MACHINE PULLER documented in this encounter Results * SCAN - LABS (07/07/2016 12:00 AM MACHINE PULLER) Narrative 07/07/2016 12:00 AM MACHINE PULLER Ordered by an unspecified provider. Historical Provider Final Res ult documented in this encounter Visit Diagnoses Not on filedocumented in this encounter Care Teams Lithograph Press Feeder Relationship Specialty Start Date End Date Damian Sparrow DO PCP - General 08/12/18 Gerhard Hampton MD [address] [place] [address] Indoor Landscaper/Gardener Cardiology 05/09/19 documented as of this encounter
--- OUTSIDE RECORDS SUMMARY | 2024-10-21 16:22 | XMS_ITS | Encounter Summary ---
Author Organization [facility] Facility Care Team Providers Care Client Success Specialist Name Role Phone Damian Sparrow DO Primary Care Provider + Gerhard Hampton MD Unavailable [phone] Encounter Details Date Type Department Care Team (Latest Contact Info) Description 03/13/2016 Orders Only [facility] CLINCONV ProviderStew MD [address] [place] [address] Social History Tobacco Use Types Packs/Day [...] Date/Time Associated Diagnosis Comments SCAN - LABS 03/13/2016 12:00 AM CDT SCAN - LABS 03/13/2016 12:00 AM CDT SCAN - LABS 03/13/2016 12:00 AM CDT SCAN - LABS 03/13/2016 12:00 AM CDT SCAN - LABS 03/13/2016 12:00 AM CDT documented in this encounter Results * SCAN - LABS (03/13/2016 12:00 AM CDT) Narrative 03/13/2016 12:00 AM CDT Ordered by an unspecified provider. [facility] Provider Final Res ult * SCAN - LABS (03/13/2016 12:00 AM CDT) Narrative 03/13/2016 12:00 AM CDT Ordered by an unspecified provider. [facility] Provider Final Res ult * SCAN - LABS (03/13/2016 12:00 AM CDT) Narrative 03/13/2016 12:00 AM CDT Ordered by an unspecified provider. [facility] Provider Final Res ult * SCAN - LABS (03/13/2016 12:00 AM CDT) Narrative 03/13/2016 12:00 AM CDT Ordered by an unspecified provider. [facility] Provider Final Res ult * SCAN - LABS (03/13/2016 12:00 AM CDT) Narrative 03/13/2016 12:00 AM CDT Ordered by an unspecified provider. [facility] Provider Final Res ult documented in this encounter Visit Diagnoses Not on filedocumented in this encounter Care Teams Client Success Specialist Relationship Specialty Start Date End Date Damian Sparrow DO PCP - General 08/12/18 Gerhard Hampton MD [address] [place] [address] Lower School Spanish Teacher Cardiology 05/09/19 documented as of this encounter
--- OUTSIDE RECORDS SUMMARY | 2024-10-21 16:22 | XMS_ITS | Encounter Summary ---
Author Organization [facility] Facility Care Team Providers Care Hydrocrane Operator Name Role Phone Damian Sparrow DO Primary Care Provider + Gerhard Hampton MD Unavailable [phone] Encounter Details Date Type Department Care Team (Latest Contact Info) Description 05/10/2015 Orders Only [facility] CLINCONV ProviderStew MD [address] [place] [address] Social History Tobacco Use Types Packs/Day [...] Date/Time Associated Diagnosis Comments COLONOSCOPY - SCAN 05/10/2015 12 :00 AM PURCHASING ASSOCIATE documented in this encounter Results * COLONOSCOPY - SCAN (05/10/2015 12:00 AM PURCHASING ASSOCIATE) Narrative 05/10/2015 12:00 AM PURCHASING ASSOCIATE Ordered by an unspecified provider. Historical Provider Final Res ult documented in this encounter Visit Diagnoses Not on filedocumented in this encounter Care Teams Hydrocrane Operator Relationship Specialty Start Date End Date Damian Sparrow DO PCP - General 08/12/18 Gerhard Hampton MD [address] [place] [address] Accounts Clerk Cardiology 05/09/19 documented as of this encounter
--- OUTSIDE RECORDS SUMMARY | 2024-10-21 16:22 | XMS_ITS | Encounter Summary ---
Author Organization [facility] Address [address] [place] [place] [address] Care Team Providers Care Photoengraving Photographer Name Role Phone Unavailable Primary Care Provider Unavailabl e Encounter Details Date Type Department Care Team (Late st Contact Info) Description 12/04/2019 Lab Requisition [facility] DermPath Lab [address] [place] [address] Rik Brown MD [address] [place] [address] Social History Tobacco Use Types Packs/Day Years Used Date Smoking Tobacco: Never Assessed Sex and Gender Information Value Date Recorded Sex Assigned at Not on file Legal Sex Male 11:36 AM RESEARCH METHODOLOGIST Gender Identity Not on file Sexual Orientation Not on file documented as of this encounter Plan of Treatment Not on file documented as of this encounter Procedures Procedure Name Priority Date/Time Associated Diagnosis Comments DERMATOPATHOLOGY Routine 12/03/2019 12:0 0 AM CDT documented in this encounter Results * DERMATOPATHOLOGY (12/03/2019 12:00 AM CDT) Case Report Dermatopathology Report Case: [id number] Authorizing Provider: Rik Brown MD Collected: 12/03/2019 12:00 AM Ordering Location: [facility] Care DermPath Lab Received: 12/04/2019 11:34 AM Pathologist: Tim Haque MD Specimen: Skin, top of right helix 0 4:25 PM CDT DERMATOPATHOLOGY LABORATORY Final Diagnosis Specimen A. SKIN, top of right helix: SEBORRHEIC KERATOSIS (L82.1) 0 4:25 PM CDT DERMATOPATHOLOGY LABORATORY at 1625 CDT Clinical History R/O ISK vs other neoplasm. 0 4:25 PM CDT DERMATOPATHOLOGY LABORATORY Gross Description Specimen A: Received is one formalin filled container labeled with the patient's name and designated top of right helix. The specimen consists of a shave biopsy measuring [id number], bisected. Jar 0. 0 4:25 PM CDT DERMATOPATHOLOGY LABORATORY Microscopic Description Specimen A. SKIN, top of right helix: Sections show an acanthotic lesion composed of relatively uniform keratinocytes. There is hyperkeratosis and pseudo horn cysts formation. 0 4:25 PM CDT DERMATOPATHOLOGY LABORATORY Disclaimer An external and internal positive and negative controls are appropriate for the histochemical, immunohistochemical and immunofluorescence stain(s) in this case (if any), except where stated explicitly. The performance characteristics of the stain(s) cited in this report were developed and its performance characteristic determined by the Dermatopathology Laboratory at [facility], directed by Dr. Jozef Haque. These tests need not be, and therefore are not, approved by the [place] Food and Drug Administration. The tests are used for clinical purposes. Billing Codes Specimen Charges Stain Charges 32561 1 0 4:25 PM CDT DERMATOPATHOLOGY LABORATORY Embedded Images 0 4:25 PM CDT DERMATOPATHOLOGY LABORATORY Pathology/Cytolog y TISSUE SPECIMEN FROM SKIN / Unknown 12/03/2019 12/04/2019 11:34 AM CDT Rik Brown MD LAB - PATHOLOGY/CYTOLOGY ORD ERABLES Final Result DERMATOPATHOLOGY LABORATORY [facility] - Department of Dermatology Childcare [facility] Administrator [place] [address], [facility] [phone] documented in this encounter Visit Diagnoses Not on filedocumented in this encounter
--- OUTSIDE RECORDS SUMMARY | 2024-10-21 16:22 | XMS_ITS | Encounter Summary ---
Author Organization [facility] Facility Care Team Providers Care Heel Sprayer First Name Role Phone Damian Sparrow DO Primary Care Provider + Gerhard Hampton MD Unavailable [phone] Encounter Details Date Type Department Care Team (Latest Contact Info) Description 07/05/2015 Orders Only [facility] CLINCONV ProviderStew MD [address] [place] [address] Social History Tobacco Use Types Packs/Day [...] Date/Time Associated Diagnosis Comments SCAN - LABS 07/05/2015 12:00 AM MANAGER BIOSTATISTICS documented in this encounter Results * SCAN - LABS (07/05/2015 12:00 AM MANAGER BIOSTATISTICS) Narrative 07/05/2015 12:00 AM MANAGER BIOSTATISTICS Ordered by an unspecified provider. Historical Provider Final Res ult documented in this encounter Visit Diagnoses Not on filedocumented in this encounter Care Teams Heel Sprayer First Relationship Specialty Start Date End Date Damian Sparrow DO PCP - General 08/12/18 Gerhard Hampton MD [address] [place] [address] Trailhead Construction Worker Cardiology 05/09/19 documented as of this encounter
--- OUTSIDE RECORDS SUMMARY | 2024-10-21 16:22 | XMS_ITS | Encounter Summary ---
Author Organization [facility] Facility Care Team Providers Care Molding Machine Operator Name Role Phone Damian Sparrow DO Primary Care Provider + Gerhard Hampton MD Unavailable [phone] Encounter Details Date Type Department Care Team (Latest Contact Info) Description 03/21/2016 Orders Only [facility] CLINCONV ProviderStew MD [address] [place] [address] Social History Tobacco Use Types Packs/Day [...] Priority Date/Time Associated Diagnosis Comments CARDIOLOGY REPORT 03/21/2016 12: 00 AM CDT documented in this encounter Results * CARDIOLOGY REPORT (03/21/2016 12:00 AM CDT) Anatomical Region Laterality Modality Other Narrative 03/21/2016 12:00 AM CDT Ordered by an unspecified provider. Historical Provider [facility] Final Result documented in this encounter Visit Diagnoses Not on filedocumented in this encounter Care Teams Molding Machine Operator Relationship Specialty Start Date End Date Van Wyck, Damian Solomon, DO PCP - General 08/12/18 Gerhard Hampton MD [address] [place] [address] Chief Psychology Cardiology 05/09/19 documented as of this encounter
--- OUTSIDE RECORDS SUMMARY | 2024-10-21 16:22 | XMS_ITS | Referral Summary ---
Author Organization [facility] Address [address] [place] [address] Care Team Providers Care Firepot Operator And Tender Name Role Phone Damian Sparrow DO Primary Care Provider + Gerhard Hampton MD Unavailable [phone] Allergies No known active allergies Medications cholecalcifero [...] 04/10/2023 Assessment & Plan (04/10/2023 4:21 PM BRICK BAKER): Seeing Dr. Sadie Davila discussion with the pt Right bundle branch block 04/02/2023 Primary central sleep apnea 10/02/2022 Assessment & Plan (10/02/2022 2:17 PM CDT): Patient has longstanding history of sleep apnea using BiPAP and got use for last 15 years doing well encouraged to use it regularly Slow transit constipation 07/18/2022 Assessment & Plan (08/03/2022 10:43 AM BRICK BAKER): Chronic constipation, worsening since September of 2021. [...] diet Assessment & Plan (07/18/2022 2:09 PM BRICK BAKER): Refer to Dr. Valderrama Has also used Linzess Encounter for Medicare annual wellness exam 02/27 Assessment & Plan (03/27/2022 10:50 AM CDT): Chart reviewed VALERIE (generalized anxiety disorder) 03/27/2022 Assessment & Plan (04/10/2023 4:20 PM BRICK BAKER): Patient is well controlled. Continue current treatment. Assessment & Plan (03/27/2022 10:51 AM CDT): Patient is well controlled. Continue current treatment. Mild episode of recurrent major depressive disor maria dolores 03/27/2022 Assessment & Plan (04/10/2023 4:07 PM BRICK BAKER): Patient is well controlled. Continue current treatment. Assessment & Plan (07/18/2022 2:08 PM BRICK BAKER): Patient is well controlled. Continue current treatment. Assessment & Plan (03/27/2022 10:51 AM CDT): No new orders Rectal pain 03/27/2022 Assessment & Plan (03/27/2022 10:58 AM CDT): Had a colonoscopy Worsening issue Add align Hiatal hernia 08/09/2020 Assessment & Plan (08/09/2020 2:05 PM CDT): Refer to Dr. Noel Asthma 05/17/2020 Assessment & Plan (05/17/2020 2:33 PM BRICK BAKER): Add flovent Albuterol prn Insomnia 01/19/2020 Assessment [...] treatment. Assessment & Plan (07/25/2019 12:48 PM BRICK BAKER): a1c GERD (gastroesophageal reflux disease) 9 Assessment & Plan (04/10/2023 4:07 PM BRICK BAKER): Seeing Dr. Noel Assessment & Plan (08/03/2022 10:36 AM BRICK BAKER): Chronic GERD, well controlled with PPI daily. EGD with antral gastritis, biopsies negative for H pylori. -continue PPI daily -RECOMMENDATIONS given include:. anti-reflux maneuvers, Avoid acidic foods like oranges and tomatoes., Avoid calcium supplements, Avoid chocolate and peppermint., avoid cruciferous vegetables: onions, cabbage, cauliflower, broccoli, [place] sprouts, Avoid fatty food., avoid sodas and drinks that contain caffeine, avoidance of spicy foods, avoid eating 3-4 hours before bed, avoid tight-fitting clothing, and discontinuation of NSAIDs and aspirin Assessment & Plan (04/19/2020 2:14 PM BRICK BAKER): Patient is well controlled. Continue current treatment. Assessment & Plan (01/19/2020 1:08 PM CDT): Patient is well controlled. Continue current treatment. Assessment & Plan (07/25/2019 12:42 PM BRICK BAKER): Needs EGD See Dr. Noel Assessment & Plan (01/13/2019 2:36 PM CDT): Continue Dexilant Wishes to see a new gastroenteritis Sleep apnea 11/04/2018 Assessment & Plan (02/09/2021 1:36 PM CDT): Saw sleep Dr Is located in [place] Discussed ambien Was told she was not happy with this Assessment & Plan (05/17/2020 2:35 PM BRICK BAKER): stable Assessment & Plan (01/13/2019 2:29 PM [...] treatment. Assessment & Plan (07/25/2019 12:42 PM BRICK BAKER): Patient is well controlled. Continue current treatment. [...] 03/20/2016 Assessment & Plan (04/10/2023 4:07 PM BRICK BAKER): Patient is well controlled. Continue current treatment. Assessment & Plan (10/02/2022 2:15 PM CDT): Longstanding history hypertension which is under good control with amlodipine patient advised to continue same and salt restricted diet patient also taking losartan which she is tolerating no side effects. Assessment & Plan (07/18/2022 2:07 PM BRICK BAKER): Patient is well controlled. Continue current treatment. Continue amlodipine Assessment & Plan (02/09/2021 1:35 PM CDT): Patient is well controlled. Continue current treatment. Assessment & Plan (08/09/2020 2:04 PM CDT): Patient is well controlled. Continue current treatment. Assessment & Plan (06/28/2020 1:09 PM BRICK BAKER): Patient is well controlled. Continue current treatment. Assessment & Plan (05/17/2020 2:34 PM BRICK BAKER): Patient is well controlled. Continue current treatment. Assessment & Plan (04/19/2020 2:13 PM BRICK BAKER): Add amlodipine 5 Assessment & Plan (01/19/2020 1:08 PM CDT): Patient is well controlled. Continue current treatment. Assessment & Plan (07/25/2019 12:42 PM BRICK BAKER): Patient is well controlled. Continue current treatment. 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 Jean Baptiste Impingement syndrome of shoulder region 06/19/2017 03/27/2022 Elevated PSA 07/07/2016 04/10/2023 Assessment & Plan (07/18/2022 2:08 PM BRICK BAKER): Sees Dr. Magaña Assessment & Plan (03/27/2022 10:51 AM CDT): Sees Dr. Magaña urologist Assessment & Plan (08/09/2020 2:04 PM CDT): Will see urologist in October 2020 Assessment & Plan (06/28/2020 1:09 PM BRICK BAKER): Sees urology Assessment & Plan (01/19/2020 1:11 [...] Pneumococcal Polysaccharide PPV23 04/19/2020 ZOSTER LIVE 09/23/2013 Social History Tobacco Use Types Packs/Day Years [...] AM CDT Sexual Orientation Not on file Last Filed Vital Signs Vital Sign Reading Time Taken Comments Blood Pressure 116/77 07/31/2023 3:06 PM BRICK BAKER Pulse 57 07/31/2023 3:06 PM BRICK BAKER Temperature 36.6 C (97.8 F) 07/31/2023 1:59 PM BRICK BAKER Respiratory Rate 16 07/31/2023 3:06 PM BRICK BAKER Oxygen Saturation 99% 07/31/2023 3:06 PM BRICK BAKER Inhaled Oxygen Concentration - - Weight 113.6 kg (250 lb 6.4 oz) 07/26/2023 2:05 PM BRICK BAKER Height 190.5 cm (6' 3) 07/26/2023 2:05 PM BRICK BAKER Body Mass Index 31.3 07/26/2023 2:05 PM BRICK BAKER Plan of Treatment Not on file Medical Devices Implanted Type Area Gas Generator Operator Device Identifier Shelf Expiration Date Model / Serial / Lot testbirds C-Wire Jacobo .062in 5in Rowe Tip Smooth Bone Wire Fixation [id number] - [id number] Implanted:Qty: 1 on 07/31/2023 by Cari Paulino MD at [facility] testbirds [id number] / / Procedures Procedure Name Priority Date/Time Associated Diagnosis Comments COLONOSCOPY Routine 12/18/2022 HEPATITIS C ANTIBODY Routine 04/29/2020 10:21 AM BRICK BAKER Essential hypertension Medicare annual wellness visit, subsequent Gastroesophageal reflux disease, unspecified whether esophagitis present SOB (shortness of breath) from Last 3 Months or Most Recently Relevant to Health Maintenance Results * Colonoscopy (12/18/2022) Anatomical Region Laterality Modality Other Historical Provider ENDOSCOPY PROCEDURES Maya l Result * Hepatitis C antibody (04/29/2020 10:21 AM BRICK BAKER) Hep C Ab <0.1 0.0 - 0.9 s/co ratio [facility] - 01 Comment: Negative: < 0.8 Indeterminate: 0.8 - 0.9 Positive: > 0.9 The CDC recommends that a positive HCV antibody result be followed up with a HCV Nucleic Acid Amplification test (660087). Blood specimen (specimen) 04/29/2020 10:21 AM BRICK BAKER 04/29/2020 Narrative [facility] - 04/30/2020 7:36 AM BRICK BAKER Performed at: - [facility] [id number] Film Rental Clerk: Jens Cespedes PhD, Phone: [phone] Damian Sparrow DO LAB MICROBIOLOGY - GENER AL ORDERABLES Final Result [facility] - 01 from Last 3 Months or Most Recently Relevant to Health Maintenance Insurance MEDICARE [facility] [place] [address] [facility] Address: [address] [address] [facility] Address: [address] [place], [place] [id number] Care Teams Firepot Operator And Tender Relationship Specialty Start Date End Date Damian Sparrow DO PCP - General 08/12/18 Gerhard Hampton MD [address] [address] [address] Aerospace Project Engineer Cardiology 05/09/19
--- OUTSIDE RECORDS SUMMARY | 2024-10-21 16:22 | XMS_ITS | Encounter Summary ---
Author Organization [facility] Address [address] [place] [address] Care Team Providers Care Direct Casting Operator Name Role Phone Unavailable Primary Care Provider Unavailabl e Encounter Details Date Type Department Care Team (Late st Contact Info) Description 01/09/2019 Lab Requisition [facility] DermPath Lab [address] [place] [address] Rik Brown MD [address] [place] [address] Social History Tobacco Use Types Packs/Day Years Used Date Smoking Tobacco: Never Assessed Sex and Gender Information Value Date Recorded Sex Assigned at Not on file Legal Sex Male 11:36 AM RECREATION SUPERVISOR Gender Identity Not on file Sexual Orientation Not on file documented as of this encounter Plan of Treatment Not on file documented as of this encounter Procedures Procedure Name Priority Date/Time Associated Diagnosis Comments DERMATOPATHOLOGY Routine 01/08/2019 12:0 0 AM CDT documented in this encounter Results * DERMATOPATHOLOGY (01/08/2019 12:00 AM CDT) Case Report Dermatopathology Report Case: [id number] Authorizing Provider: Rik Brown MD Collected: 01/08/2019 12:00 AM Ordering Location: [facility] DermPath Lab Received: 01/09/2019 12:57 PM Pathologist: Tim Haque MD Specimens: A) - Skin, left neck below and behind earlobe B) - Skin, left neck below and behind earlobe posteriorly 9 5:02 PM CDT DERMATOPATHOLOGY LABORATORY Addendum 1 Specimen B: The lesion is not present at the sampled margin of the specimen. 9 5:02 PM CDT DERMATOPATHOLOGY LABORATORY Addendum electronically signed by Tim Haque MD on 01/15/2019 at 1702 CDT Final Diagnosis Specimen A. SKIN, left neck below and behind earlobe: CHRONIC PERIFOLLICULITIS (L73.8) DERMAL FIBROSIS (L90.5) Specimen B. SKIN, left neck below and behind earlobe posteriorly: BASAL CELL CARCINOMA, INFILTRATIVE PATTERN (C44.41) 9 5:02 PM CDT DERMATOPATHOLOGY LABORATORY at 1301 CDT Clinical History A-B: R/O BCC. 9 5:02 PM CDT DERMATOPATHOLOGY LABORATORY Gross Description Specimen A: Received is one formalin filled container labeled with the patient's name and designated left neck below and behind earlobe. The specimen consists of a shave biopsy measuring [id number]. Jar 0. Specimen B: Received is one formalin filled container labeled with the patient's name and designated left neck below and behind earlobe posteriorly. The specimen consists of a curettage and desiccation biopsy measuring [id number]. Jar 0. 9 5:02 PM CDT DERMATOPATHOLOGY LABORATORY Microscopic Description Specimen A. SKIN, left neck below and behind earlobe: Sections show a perifollicular lymphohistiocytic infiltrate. The epidermis is unremarkable. There is focal dermal fibrosis. Tumor is not present in the sections examined. Specimen B. SKIN, left neck below and behind earlobe posteriorly: Within the dermis there are nodular aggregates of basaloid cells associated with fibromyxoid stroma and epithelial-stromal clefts. At the advancing margin of the neoplasm, there are smaller angulated nests that infiltrate the dermis. 9 5:02 PM CDT DERMATOPATHOLOGY LABORATORY Disclaimer An external and internal positive and negative controls are appropriate for the histochemical, immunohistochemical and immunofluorescence stain(s) in this case (if any), except where stated explicitly. The performance characteristics of the stain(s) cited in this report were developed and its performance characteristic determined by the Dermatopathology Laboratory at [facility], directed by Dr. Jozef Haque. These tests need not be, and therefore are not, approved by the [place] Food and Drug Administration. The tests are used for clinical purposes. Billing Codes Specimen Charges Stain Charges 53316 85971 1 1 9 5:02 PM CDT DERMATOPATHOLOGY LABORATORY Embedded Images 9 5:02 PM CDT DERMATOPATHOLOGY LABORATORY Pathology/Cytology TISSUE SPECIMEN FROM SKIN / Unknown 01/08/2019 01/09/2019 12:57 PM CDT Miscellaneous samples (specimen) TISSUE SPECIMEN FROM SKIN / Unknown 01/08/2019 01/09/2019 12:57 PM CDT Rik Brown MD LAB - PATHOLOGY/CYTOLOGY ORD ERABLES Edited Result - Final DERMATOPATHOLOGY LABORATORY [facility] - Department of Dermatology [address] [place] [address] [address] Lab [address] [phone] documented in this encounter Visit Diagnoses Not on filedocumented in this encounter
--- OUTSIDE RECORDS SUMMARY | 2024-10-21 16:22 | XMS_ITS | Encounter Summary ---
Author Organization [facility] Facility Care Team Providers Care Diamond Die Maker Name Role Phone Damian Sparrow DO Primary Care Provider + Gerhard Hampton MD Unavailable [phone] Encounter Details Date Type Department Care Team (Latest Contact Info) Description 04/19/2016 Orders Only [facility] CLINCONV ProviderStew MD [address] [place] [id number] Social History Tobacco Use Types Packs/Day [...] Priority Date/Time Associated Diagnosis Comments CARDIOLOGY REPORT 04/19/2016 12: 00 AM ALLERGIST documented in this encounter Results * CARDIOLOGY REPORT (04/19/2016 12:00 AM ALLERGIST) Anatomical Region Laterality Modality Other Narrative 04/19/2016 12:00 AM ALLERGIST Ordered by an unspecified provider. Historical Provider [facility] Final Result documented in this encounter Visit Diagnoses Not on filedocumented in this encounter Care Teams Diamond Die Maker Relationship Specialty Start Date End Date Damian Sparrow DO PCP - General 08/12/18 Gerhard Hampton MD [address] [facility] [place] [address] Senior Writer Cardiology 05/09/19 documented as of this encounter
--- OUTSIDE RECORDS SUMMARY | 2024-10-21 16:22 | XMS_ITS | Encounter Summary ---
Author Organization [facility] Facility Care Team Providers Care Anesthesiologist Name Role Phone Damian Sparrow DO Primary Care Provider + Gerhard Hampton MD Unavailable [phone] Encounter Details Date Type Department Care Team (Latest Contact Info) Description 06/03/2018 Orders Only [facility] CLINCONV ProviderStew MD [address] [place] [id number] Social History Tobacco Use Types Packs/Day [...] Date/Time Associated Diagnosis Comments SCAN - LABS 06/04/2018 12:00 AM ONCOLOGY REP documented in this encounter Results * SCAN - LABS (06/04/2018 12:00 AM ONCOLOGY REP) Narrative 06/04/2018 12:00 AM ONCOLOGY REP Ordered by an unspecified provider. Historical Provider Final Res ult documented in this encounter Visit Diagnoses Not on filedocumented in this encounter Care Teams Anesthesiologist Relationship Specialty Start Date End Date Damian Sparrow DO PCP - General 08/12/18 Gerhard Hampton MD [address] [facility] [place] [address] Counter Server Cardiology 05/09/19 documented as of this encounter
== END ==
LOC: ANHLAB 16:05
PROVIDERS: Visit Provider Otolaryngology
DX: H93.8X2 Other specified disorders of left ear (principal)
CPT/HCPCS: 88305